=== PATIENT | female | born 1955 | race Caucasian/White ===

== ENCOUNTER 2016-12-16 11:28 | Emergency (ER) | payer OTHER ==
[2016-12-16 11:34] VITALS: TEMP 98.1; BMI 29.7
--- NOTE | 2016-12-16 14:38 | PDOC ---
History of Present Illness - General History Source: Patient Exam Limitations: No Limitations - History of Present Illness Initial Comments: 12/16/16 14:38 The patient is a 61 year old female with significant past medical history of niddm on metformin, diverticulosis, gastritis, asthma, kidney stones who presents to the ED for 2 days of right mid-back pain radiating to the right abdomen. Patient describes pain as a sharp and twisting sensation with associated nausea and vomiting. Denies diarrhea. Patient reports eating [place] food on Friday, which is typically unusual for her, and developed pain the following morning. States she has a 4 year chronic history of abdominal pain and the first time she was evaluated for similar symptoms she was found to have kidney stones. Since then she has had occasional similar symptoms and has been evaluated with extensive work-up, but no physical source. Patient reports trying to avoid eating secondary to abdominal pain and vomiting. She also reports slight improvement with stimulator patch. The patient denies fever, chills, cough, SOB, chest pain, and palpitations. The patient denies dysuria, hematuria, urgency, and frequency. Allergies: levofloxacin, azithromycin, and multiple food allergy Social History: No alcohol, tobacco, or drug use reported. Past Surgical History: , cataracts sx x 2, meniscus repair x 2, colonoscopy, upper endoscopy (pud) PCP: Dr. Heladio Estrada Agronomy Instructor: Dr. Nato Douglas GI: Dr. Thomas Ferreira <Ivelisse Nice - Last Filed: 12/16/16 14:38> <Darrius Kaur - Last Filed: 12/16/16 18:44> - General Chief Complaint: Pain, Acute Stated Complaint: ABD/LOWER FLANK PAIN Time Seen by Provider: 12/16/16 13:42 Past History <Ivelisse Nice - Last Filed: 12/16/16 14:38> - Past Medical History Asthma: Yes Cardiac Disorders: Yes Diabetes: Yes (NIDDM) GI Disorders: Yes (diverticulosis) Disorders: Yes (kidney stones) Kidney Stones: Yes - Surgical History Orthopedic Surgery: Yes (right knee surgery) - Psycho/Social/Smoking Cessation Hx Anxiety: No Suicidal Ideation: No Smoking Status: Yes Smoking History: Former smoker Have you smoked in the past 12 months: No Number of Cigarettes Smoked Daily: 0 If you are a former smoker, when did you quit?: 15 Information on smoking cessation initiated: No Hx Alcohol Use: No Drug/Substance Use Hx: No Substance Use Type: None Hx Substance Use Treatment: No <Darrius Kaur - Last Filed: 12/16/16 18:44> - Past Medical History Allergies/Adverse Reactions: Allergies Allergy/AdvReac Type Severity Reaction Status Date / Time levofloxacin Allergy Verified 12/16/16 11:35 azithromycin AdvReac Verified 12/16/16 11:35 nuts/beans Allergy Severe anaphylactic Uncoded 12/16/16 11:35 shock aged food products Allergy Uncoded 12/16/16 11:35 fruits/vegetables Allergy Uncoded 12/16/16 11:35 multiple food allergies Allergy Uncoded 12/16/16 11:35 trees/mold/dust Allergy Uncoded 12/16/16 11:35 Home Medications: Ambulatory Orders Metformin HCl [Glucophage -] 500 mg PO BID 01/12/13 Omeprazole [Prilosec] 20 mg PO DAILY 12/11/15 Sulfamethoxazole/Trimethoprim [Bactrim Ds -] 1 tab PO BID #20 tablet 12/16/16 Tramadol HCl [Ultram] 50 mg PO TID PRN #10 tablet MDD 3 12/16/16 Review of Systems - Review of Systems Constitutional: No: Chills, Fever Respiratory: No: Cough, Shortness of Breath Cardiac (ROS): No: Chest Pain ABD/GI: No: Constipated, Diarrhea, Nausea, Vomiting : Yes: Flank Pain. No: Dysuria, Frequency, Hematuria Musculoskeletal: Yes: Muscle Pain All Other Systems: Reviewed and Negative <Darrius Kaur - Last Filed: 12/16/16 18:44> *Physical Exam - Vital Signs Last Vital Signs Temp Pulse Resp BP Pulse Ox 98.1 F 69 18 150/77 96 12/16/16 11:29 12/16/16 11:29 12/16/16 11:29 12/16/16 11:29 12/16/16 11:29 - Physical Exam Comments: 12/16/16 14:39 GENERAL: The patient is awake, alert, and fully oriented, in no acute distress. HEAD: Normal with no signs of trauma. EYES: Pupils equal, round and reactive to light, extraocular movements intact, sclera anicteric, conjunctiva clear with no pallor. ENT: Ears normal, nares patent, oropharynx clear without exudates. Moist mucous membranes. NECK: Normal range of motion, supple without lymphadenopathy, JVD, or masses. LUNGS: Breath sounds equal, clear to auscultation bilaterally. No wheeze/ crackles. HEART: Regular rate and rhythm, normal S1 and S2 without murmur or rub. ABDOMEN: Soft/nondistended. No right upper quadrant tenderness. Right pelvic discomfort. BS wnl. No guarding or rebound. No palpable masses. No hepatosplenomegaly. EXTREMITIES: Normal range of motion, no edema. No clubbing or cyanosis. No cords, erythema, or tenderness. MUSCKLOSKELETAL: No CVA tenderness. No reproducible back tenderness. NEUROLOGICAL: Cranial nerves II through XII grossly intact. Normal speech, normal gait. PSYCH: Normal mood, normal affect. SKIN: Warm, Dry, normal turgor, no rashes or lesions noted. <Ivelisse Nice - Last Filed: 12/16/16 14:38> - Vital Signs Last Vital Signs Temp Pulse Resp BP Pulse Ox 98.1 F 69 18 150/77 96 12/16/16 11:29 12/16/16 11:29 12/16/16 11:29 12/16/16 11:29 12/16/16 11:29 <Darrius Kaur - Last Filed: 12/16/16 18:44> ED Treatment Course - LABORATORY CBC & Chemistry Diagram: 12/16/16 16:00 12/16/16 16:00 - RADIOLOGY Radiology Studies Ordered: Category Date Time Status ABDOMEN US -LIMITED [US] Stat Ultrasound 12/16/16 14:00 Ordered KIDNEY / RENAL US [US] Stat Ultrasound 12/16/16 14:00 Ordered <Darrius Kaur - Last Filed: 12/16/16 18:44> Medical Decision Making - Medical Decision Making 12/16/16 14:30 A portion of this note was documented by scribe services under my direction. I have reviewed the details of the note, within reason, and agree with the documentation with the following case summary and management plan written by me. 61-year-old female with history of recurring back/abdominal pain for several years without clear etiology despite imaging, now presents with an exacerbation of her same right back/right abdominal pain that began 2 days ago. No injury, has applied the only things that relieves her pain which is a topical stimulator. Decreased appetite, ? worse with PO intake, n/v at high severity pain, no d/c. no urinary complaints, no cardiopulmonary complaints. Normal. Comfortable now. Mild right pelvic/lower lateral abdominal discomfort to palpation without guarding or rebound, no CVA tenderness, no musculoskeletal or skin findings Lungs are clear 61-year-old female with acute on chronic right back/abdominal pain. No clear findings on exam, once had a kidney stone but workups have otherwise been negative for renal/biliary etiology. ? herniated disc, no evidence of zoster. labs, ua renal and GB sono declines pain control now reassess 12/16/16 16:46 GB/renal sono wnl. no leukocytosis, normal diff. Chem hemolyzed so repeated. UA with elevated WBC, will treat for presumed UTI/pyelo. 12/16/16 18:37 Chem again hemolyzed, Pt does not want to wait anymore and will f/u with her PMD. Agrees with plan and understands return criteria. <Darrius Kaur - Last Filed: 12/16/16 18:44> *DC/Admit/Observation/Transfer - Attestations Scribe Attestion: 12/16/16 14:39 Documentation prepared by Ivelisse Nice, acting as medical program specialist for Darrius Kaur MD, MD/DO. <Ivelisse Nice - Last Filed: 12/16/16 14:38> <Darrius Kaur - Last Filed: 12/16/16 18:44> Diagnosis at time of Disposition: Chronic abdominal pain, Pyelonephritis Right-sided back pain Qualifiers: Back pain location: thoracic back pain Chronicity: chronic Qualified Code(s): M54.6 - Pain in thoracic spine - Discharge Dispostion Disposition: HOME Condition at time of disposition: Improved - Prescriptions Prescriptions: Sulfamethoxazole/Trimethoprim [Bactrim Ds -] 1 tab PO BID #20 tablet Tramadol HCl [Ultram] 50 mg PO TID PRN #10 tablet MDD 3 PRN Reason: Pain - Referrals Referrals: Heladio Estrada MD [Primary Care Provider] - - Patient Instructions Printed Discharge Instructions: DI for Kidney Infection Additional Instructions: Activity as tolerated. Stay hydrated. Tylenol 1000 mg every 8 hours and/or ibuprofen 600 mg every 8 hours as needed for moderate pain, Tramadol as prescribed as needed for severe pain. Tramadol can make you lightheaded so take proper precautions. Your symptoms are due to a kidney infection. Take Bactrim as prescribed for 10 days. As we discussed, your "chemistry panel" tests were not completed, so follow up with your primary doctor. Continue your medications as previously prescribed by your physician. You should follow up with Dr. Estrada as soon as possible regarding today's emergency department visit. Return to the emergency department for any new or concerning symptoms, particularly persistent or worsening pain, fever/chills, difficulty urinating, shortness of breath.
[2016-12-16 16:13] LABS: URINE APPEARANCE TURBID; URINE BILIRUBIN NEGATIVE (NEGATIVE); URINE BLOOD NEGATIVE (NEGATIVE); URINE COLOR YELLOW; URINE GLUCOSE (UA) NEGATIVE (NEGATIVE); URINE KETONE TRACE (NEGATIVE); URINE NITRITE NEGATIVE (NEGATIVE); URINE PROTEIN NEGATIVE (NEGATIVE); URINE UROBILINOGEN NEGATIVE E.U./dl (0.2-1.0)
[2016-12-16 16:18] LABS: BASOPHIL 0.4 % (0-2.0); EOSINOPHIL 0.3 % (0-4.5); MCH 28.5 pg (25.7-33.7); MCHC 33.4 g/dl (32.0-36.0); MEAN CELL VOLUME 85.1 fl (80-96); MEAN PLT VOLUME 9.2 fl (7.5-11.1); NEUTROPHILS 69.3 % (42.8-82.8); PLATELET COUNT 187 K/MM3 (134-434); RDW 13.3 % (11.6-15.6); WHITE BLOOD COUNT 6.9 K/mm3 (4.0-10.0)
[2016-12-16 16:19] LABS: URINE LEUK ESTERASE 3+ (NEGATIVE)
[2016-12-16 16:22] LABS: URINE BACTERIA RARE /hpf (NONE SEEN); URINE MUCUS MODERATE; URINE RBC 3 /hpf (0-3); URINE WBC 87 /hpf (3-5); YEAST FEW
[2016-12-16] MEDS ORDERED: CEFTRIAXONE 1 GM in DEXTROSE 5%-WATER - 50 ML IVPB ONE (16:40)
[2016-12-16] MEDS ORDERED: SULFAMETHOXAZOLE/TRIMETHOPRIM 800MG/160MG D.S. TABLET PO ONE (16:40)
[2016-12-16] MEDS ORDERED: SULFAMETHOXAZOLE/TRIMETHOPRIM 800MG/160MG D.S. TABLET ONE (16:57)
[2016-12-16] MEDS ORDERED: KETOROLAC TROMETHAMINE 30 MG/1 ML VIAL IVPUSH ONE (17:13)
[2016-12-16] MEDS ORDERED: traMADol HCL 50 MG TABLET PO ONE (17:22)
[2016-12-16] MEDS ORDERED: traMADol HCL 50 MG TABLET ONE (18:09)
[2016-12-16 19:05] VITALS: BP 150/76; PULSE 63
== END 2016-12-16 19:05 | disposition home or self-care (01) ==
LOC: JER 11:28
DX: N12 Tubulo-interstitial nephritis, not specified as acute or chronic (principal); E11.9 Type 2 diabetes mellitus without complications; Z79.84 Long term (current) use of oral hypoglycemic drugs; J45.909 Unspecified asthma, uncomplicated; Z87.442 Personal history of urinary calculi
CPT/HCPCS: 36415; 76705-TC; 76775-TC; 81003; 81015; 85025; 87086; 99282-25

== ENCOUNTER 2017-01-17 07:23 | Emergency (ER) | payer OTHER ==
[2017-01-17 07:45] VITALS: TEMP 98.2; BMI 34.2
--- NOTE | 2017-01-17 08:03 | PDOC ---
History of Present Illness <Thuy Calzada - Last Filed: 01/17/17 11:43> - General History Source: Patient, Spouse Exam Limitations: No Limitations - History of Present Illness Initial Comments: 61 yo female with h/o renal calculus (stone passed >2 years ago), diverticulosis , gastritis, NIDDM on metformin, and 34 years ago who presents c/o right lower back and RUQ pain. She has had recurrent episodes of this pain for the past four years and was last seen two months ago here in the [facility] ED, diagnosed with UTI/pyelonephritis based on WBC in the urine, and given antibiotic, but the urine cultures did not grow out any organisms ultimately). This onset started suddenly yesterday morning and is like a knife twisting in her right low back. It is 4/10 at rest and 10/10 when she stands. The pain radiates straight forward to her right upper abdomen. Yesterday she took Motrin and a narcotic pain reliever from her prior Rx, and she placed a lidocaine patch on her low back. This morning she has taken nothing but replaced the lidocaine patch with a TENS unit on the lower back. She notes nausea and two episodes of dry heaving this morning, as well as recent mild cough. She denies any diarrhea, constipation, black/bloody stool, vaginal bleeding, vaginal discharge, painful urination, other urinary symptoms, chest pain, or shortness of breath. She still has her gallbladder, appendix, ovaries, and uterus. She has had this same pain many times before and has been seen here in the ED, by her PCP, and by Gastroenterology. She has had abdominal US, abdominal/pelvic CT with and without contrast, MRI, upper endoscopy, and colonoscopy with nondirective workup for the recurrent episodes. <Dover,Mary - Last Filed: 01/17/17 12:23> - General Stated Complaint: LWR BACK PAIN Time Seen by Provider: 01/17/17 07:39 Past History <Thuy Calzada - Last Filed: 01/17/17 11:43> - Past Medical History Asthma: Yes Cardiac Disorders: Yes Diabetes: Yes (NIDDM) GI Disorders: Yes (diverticulosis) Disorders: Yes (kidney stones) Kidney Stones: Yes - Surgical History Abdominal Surgery: Yes ( 34 years ago) Appendectomy: No Cholecystectomy: No Orthopedic Surgery: Yes (right knee surgery) - Psycho/Social/Smoking Cessation Hx Anxiety: No Suicidal Ideation: No Smoking Status: Yes Smoking History: Former smoker Have you smoked in the past 12 months: No Number of Cigarettes Smoked Daily: 0 If you are a former smoker, when did you quit?: 15 Hx Alcohol Use: No Drug/Substance Use Hx: No Substance Use Type: None Hx Substance Use Treatment: No <Citlaly Dover - Last Filed: 01/17/17 12:23> - Past Medical History Allergies/Adverse Reactions: Allergies Allergy/AdvReac Type Severity Reaction Status Date / Time levofloxacin Allergy Verified 01/17/17 07:42 azithromycin AdvReac Verified 01/17/17 07:42 nuts/beans Allergy Severe anaphylactic Uncoded 01/17/17 07:42 shock aged food products Allergy Uncoded 01/17/17 07:42 fruits/vegetables Allergy Uncoded 01/17/17 07:42 multiple food allergies Allergy Uncoded 01/17/17 07:42 trees/mold/dust Allergy Uncoded 01/17/17 07:42 Home Medications: Ambulatory Orders Metformin HCl [Glucophage -] 500 mg PO DAILY 01/12/13 Cephalexin [Keflex] 500 mg PO TID #30 capsule 01/17/17 Diazepam [Valium] 5 mg PO Q8H PRN #10 tablet MDD 3 01/17/17 Ibuprofen 600 mg PO TID PRN #30 tablet MDD 3 01/17/17 Methylprednisolone [Medrol Dose Sundeep] 4 mg PO ASDIR #21 tablet 01/17/17 Review of Systems - Review of Systems Constitutional: No: Chills, Fever, Unexplained wgt Loss HEENTM: No: Nose Congestion, Throat Pain Respiratory: Yes: Cough (mild). No: Shortness of Breath Cardiac (ROS): No: Chest Pain, Palpitations ABD/GI: Yes: Nausea, Vomiting (dry heaves). No: Constipated, Diarrhea : No: Burning, Dysuria Musculoskeletal: Yes: Back Pain (right lower). No: Neck Pain Integumentary: No: Bruising, Rash Neurological: No: Headache, Numbness, Tingling, Weakness, Dizziness Endocrine: No: Unexplained Weight Gain, Unexplained Weight Loss <Citlaly Dover - Last Filed: 01/17/17 12:23> *Physical Exam - Vital Signs Last Vital Signs Temp Pulse Resp BP Pulse Ox 98.2 F 66 20 176/86 97 01/17/17 07:42 01/17/17 07:42 01/17/17 07:42 01/17/17 07:42 01/17/17 07:42 <Thuy Calzada - Last Filed: 01/17/17 11:43> - Physical Exam General Appearance: Yes: Nourished, Mild Distress, Obese, Other (appears frustrated but is conversive and appropriate) HEENT: positive: EOMI, Normal Voice, Hearing Grossly Normal. negative: Scleral Icterus (R), Scleral Icterus (L), Nasal Congestion Neck: positive: Trachea midline, Supple. negative: Tender, Rigid Respiratory/Chest: positive: Lungs Clear, Normal Breath Sounds. negative: Respiratory Distress, Crackles, Rhonchi, Stridor, Wheezing Cardiovascular: positive: Regular Rhythm, Regular Rate. negative: Murmur Gastrointestinal/Abdominal: positive: Normal Bowel Sounds, Tender (mild RUQ tenderness to palpation with negative Mar's sign), Soft, Other (no tenderness on heel tap, no rebound tenderness). negative: Organomegaly, Pulsatile Mass, Guarding Musculoskeletal: positive: Normal Inspection, Other (no midline tenderness to palpation, TENS unit noted on lower back just superior and lateral to SI joint bilaterally, no significant paraspinous tenderness to palpation, no tenderness to sciatic nerve or piriformis distribution bilaterally). negative: Decreased Range of Motion Extremity: positive: Normal Capillary Refill, Normal Inspection, Normal Range of Motion. negative: Tender, Coldness, Cyanosis, Calf Tenderness Integumentary: positive: Normal Color, Dry, Warm, Other (right upper extremity with 5x5 and 3x3 cm patches of raised erythema with excoriations consistent with rhus dermatitis). negative: Erythema, Rash, Bruising Neurologic: positive: service consultant II-XII NML intact, Fully Oriented, Alert, Normal Mood/ Affect, Normal Response, Motor Strength 5/5 (including 5/5 strength BLE to foot and toe dorsiflexion and plantarflexion, knee flexion and extension, and hip flexion, extension, abduction, adduction, internal rotation, and external rotation, sensation to light touch intact throughout BLE, proprioception great toe intact bilaterally ), Other (normal gait) Deep Tendon Reflexes: Ankle (L): 2+, Ankle (R): 2+, Knee (L): 2+, Knee (R): 2+ <Citlaly Dover - Last Filed: 01/17/17 12:23> Procedures - Bedside Ultrasound Bedside Ultrasound: Gallbladder Other: GB and REnal ultrasound : see [facility] for findings. <Thuy Calzada - Last Filed: 01/17/17 11:43> - Bedside Ultrasound Bedside Ultrasound: Gallbladder Other: renal, bladder Remarks: 01/17/17 11:10 No hydronephrosis, no gallstones or wall thickening or pericholecystic fluid or distention, bladder is not visualized as Pt just emptied bladder. <Citlaly Dover - Last Filed: 01/17/17 12:23> ED Treatment Course - LABORATORY CBC & Chemistry Diagram: 01/17/17 08:25 01/17/17 08:25 - ADDITIONAL ORDERS Additional order review: Laboratory Results 01/17/17 01/17/17 01/17/17 08:44 08:25 08:25 Sodium 139 Potassium 4.6 Chloride 102 Carbon Dioxide 31 Anion Gap 6 L BUN 17 D Creatinine 0.6 Creat Clearance w eGFR > 60 Random Glucose 164 H Calcium 9.6 Total Bilirubin 0.3 D AST 46 H D ALT 80 H D Alkaline Phosphatase 87 D Total Protein 7.8 Albumin 3.8 Lipase 144 Urine Color Ltyellow Urine Appearance Clear Urine pH 5.0 Urine Protein Negative Urine Glucose (UA) Negative Urine Ketones Negative Urine Blood Negative Urine Nitrite Negative Urine Bilirubin Negative Urine Urobilinogen Negative Ur Leukocyte Esterase Trace Urine RBC 1 Urine WBC 7 Ur Epithelial Cells Rare Urine Mucus Rare 01/17/17 08:25 RBC 4.70 MCV 84.8 MCHC 33.3 RDW 13.2 MPV 9.2 Neutrophils % 81.1 Lymphocytes % 11.3 D Monocytes % 6.4 Eosinophils % 0.8 D Basophils % 0.4 - Medications Given in the ED: ED Medications Discontinued Medications Generic Name Dose Route Start Last Admin Trade Name Андрейq PRN Reason Stop Dose Admin Cephalexin HCl 500 mg 01/17/17 11:06 01/17/17 11:29 Keflex - PO 01/17/17 11:07 500 mg ONCE ONE Administration Diazepam 5 mg 01/17/17 11:06 01/17/17 11:29 Valium - PO 01/17/17 11:07 5 mg ONCE ONE Administration Ketorolac Tromethamine 30 mg 01/17/17 08:31 01/17/17 09:04 Toradol Injection - IVPUSH 01/17/17 08:32 30 mg ONCE ONE Administration <Thuy Calzada - Last Filed: 01/17/17 11:43> - LABORATORY CBC & Chemistry Diagram: 01/17/17 08:25 01/17/17 08:25 <Citlaly Dover - Last Filed: 01/17/17 12:23> Medical Decision Making - Medical Decision Making 01/17/17 11:47 focused ED ultrasound renal, indication : flank pain r/o hydro finding: no hydronephrosis bilaterally. bladder empty. impression: normal renal ultrasound focused ED ultrasound gallbladder: indication: right side abd/ flank pain finding: gallbladder scanned in two planes. no stones. no wall thickening, no wall edema. neg sonographic mar's, wall measured <4mm, CBD 2 mm, impression: normal gallbladder. major <Thuy Calzada - Last Filed: 01/17/17 11:43> - Medical Decision Making 61 yo female with h/o kidney stone, pyelonephritis, diverticulosis, 4 year struggle with right low back pain. Here with recurrence of right low back pain radiating to RUQ same as prior episodes. Exam notable only for RUQ mild tenderness to palpation without Mar's sign. Back exam within normal limits, neurovascularly intact, BLE reflexes 2+ and symmetric. Cannot-miss DDX includes cauda equina syndrome, spinal cord compression (e.g. by a mass), vertebral fracture, meningitis, spinal epidural abscess, AAA. DDX also includes herniated lumbar disc compressing nerve root, sciatica, piriformis syndrome, cholecystitis, appendicitis, diverticulitis, renal calculis , UTI/pyelonephritis. Ordered are CBC, CMP, lipase, UA, urine culture. Will perform bedside US as well. Symptom control orders Zofran and Toradol. 01/17/17 10:39 Pt states the pain medication "took the edge off" but she still feels it. Laboratories have resulted with the only abnormalities being only AST=46 and ALT =80. Bedside US done w/o e/o hydronephrosis or gallstones or cholecystitis, bladder is empty. 01/17/17 11:10 Pt's UA does show some WBC and she notes being mildly symptomatic. Will treat for presumed UTI with Keflex Also will treat for back pain/spasm with Valium 5 mg here in the ED and short prescription. 01/17/17 11:12 Pt given valium with significant relief. She is comfortable with DC home with Rx as noted above, and close OP followup. Medrol dose pack prescribed for acute back pain, coincidental poison chente/oak dermatitis. <Citlaly Dover - Last Filed: 01/17/17 12:23> *DC/Admit/Observation/Transfer <Thuy Calzada - Last Filed: 01/17/17 11:43> - Discharge Dispostion Admit: No - Attestations Physician Attestion: 01/17/17 11:17 I, Dr. Citlaly Dover, attest that this document has been prepared under my direction and personally reviewed by me in its entirety. I further attest, that it accurately reflects all work, treatment, procedures and medical decision -making performed by me. <Citlaly Dover - Last Filed: 01/17/17 12:23> Diagnosis at time of Disposition: Rhus dermatitis UTI (urinary tract infection) Qualifiers: Urinary tract infection type: acute pyelonephritis Qualified Code(s): N10 - Acute pyelonephritis Back pain Qualifiers: Back pain location: low back pain Chronicity: unspecified Back pain laterality : right Sciatica presence: without sciatica Qualified Code(s): M54.5 - Low back pain - Discharge Dispostion Disposition: HOME Condition at time of disposition: Stable - Prescriptions Prescriptions: Ibuprofen 600 mg PO TID PRN #30 tablet MDD 3 PRN Reason: Pain Cephalexin [Keflex] 500 mg PO TID #30 capsule Methylprednisolone [Medrol Dose Sundeep] 4 mg PO ASDIR #21 tablet Diazepam [Valium] 5 mg PO Q8H PRN #10 tablet MDD 3 PRN Reason: Pain - Referrals Referrals: Heladio Estrada MD [Primary Care Provider] - - Patient Instructions Printed Discharge Instructions: DI for Low Back Pain, DI for Back Spasm Additional Instructions: You were seen in the ER today for right lower back pain and right abdominal pain. We did some blood work and a urine test which did not show anything obviously abnormal except for a few white blood cells in the urine. Because you are mildly symptomatic with slight burning on urination, we are treating you for a UTI with Keflex (please miner pick prescription from your pharmacy). We are also diagnosing you with right lower back pain/muscle spasm and treating you with valium which you can take as needed per the instructions on the bottle. Please pick this up from your pharmacy too. Please follow up with your regular doctor or return to the ED with any further emergency concerns.
[2017-01-17] MEDS ORDERED: KETOROLAC TROMETHAMINE 30 MG/1 ML VIAL IVPUSH ONE (08:31)
[2017-01-17 09:03] LABS: URINE APPEARANCE CLEAR; URINE BILIRUBIN NEGATIVE (NEGATIVE); URINE BLOOD NEGATIVE (NEGATIVE); URINE COLOR LTYELLOW; URINE GLUCOSE (UA) NEGATIVE (NEGATIVE); URINE KETONE NEGATIVE (NEGATIVE); URINE LEUK ESTERASE TRACE (NEGATIVE); URINE NITRITE NEGATIVE (NEGATIVE); URINE PROTEIN NEGATIVE (NEGATIVE); URINE UROBILINOGEN NEGATIVE mg/dL (0.2-1.0)
[2017-01-17] MEDS ORDERED: KETOROLAC TROMETHAMINE 30 MG/1 ML VIAL ONE (09:05)
[2017-01-17 09:06] LABS: BASOPHIL 0.4 % (0-2.0); EOSINOPHIL 0.8 % (0-4.5); MCH 28.2 pg (25.7-33.7); MCHC 33.3 g/dl (32.0-36.0); MEAN CELL VOLUME 84.8 fl (80-96); MEAN PLT VOLUME 9.2 fl (7.5-11.1); NEUTROPHILS 81.1 % (42.8-82.8); PLATELET COUNT 156 K/MM3 (134-434); RDW 13.2 % (11.6-15.6)
[2017-01-17 09:09] LABS: URINE MUCUS RARE; URINE RBC 1 /hpf (0-3); URINE WBC 7 /hpf (3-5)
[2017-01-17 09:33] LABS: ALBUMIN 3.8 g/dl (3.4-5.0); ALK PHOS 87 U/L (45-117); ANION GAP 6 (8-16); BILIRUBIN,TOTAL 0.3 mg/dL (0.2-1.0); CALCIUM 9.6 mg/dL (8.5-10.1); CO2 31 mmol/L (21-32); CREATININE 0.6 mg/dL (0.55-1.02); GLUCOSE,RANDOM 164 mg/dL (74-106); SGOT/AST 46 U/L (15-37); SGPT/ALT 80 U/L (12-78); TOT PROT 7.8 g/dl (6.4-8.2)
[2017-01-17] MEDS ORDERED: CEPHALEXIN MONOHYDRATE 500 MG CAPSULE (UD) PO ONE (11:06)
[2017-01-17] MEDS ORDERED: diazePAM 5 MG TABLET PO ONE (11:06)
[2017-01-17] MEDS ORDERED: CEPHALEXIN MONOHYDRATE 250 MG CAPSULE (FP) ONE (11:26)
[2017-01-17] MEDS ORDERED: diazePAM 5 MG TABLET ONE (11:27)
--- NOTE | 2017-01-17 11:33 | PDOC ---
Attending Attestation - Resident Resident Name: DoverCitlaly - ED Attending Attestation I have performed the following: I have examined & evaluated the patient, The case was reviewed & discussed with the resident, I agree w/resident's findings & plan, Exceptions are as noted - HPI HPI: 01/17/17 11:23 61 yo F with h/o DM here wtih c/o right side flank and low back pain awoke with pain this am. no mod factors. no heavy lifting, no trauma, numbness or no weakness, no bowel or bladder dysfunction. does have urinary frequency. does report recent dysuria. no f/c no n/v. no rash. has had prior us renal and GB which was normal in november 2015. also has had an MRI in the past which was also normal. - Physicial Exam PE: 01/17/17 11:33 awake alert lungs clear heart RRR no mrg abd soft NT ND . bilat lower flank ttp , no midline central vertebral tenderness. bilat lower ext strength 5/5 , sensation intact throughout. 01/17/17 11:33 - Medical Decision Making 01/17/17 11:41 61 yo F with bilat lower back pain, no abd tenderness on exam, normal nuerological exam. plan nsaids muscle relaxers, bedside us renal and gb. ua r/o uti, pyleo. reassess.
[2017-01-17] MEDS ORDERED: BACITRACIN 0.9 GM PACKET ONE (11:58)
[2017-01-17] MEDS ORDERED: BACITRACIN 15 GM TUBE TOPICAL OINTMENT ONE (11:59)
[2017-01-17 12:17] VITALS: BP 133/77; PULSE 71
== END 2017-01-17 12:17 | disposition home or self-care (01) ==
LOC: JER 07:23
DX: N10 Acute pyelonephritis (principal); L23.7 Allergic contact dermatitis due to plants, except food
CPT/HCPCS: 36415; 80053; 81003; 81015; 83690; 85025; 87086; 99283-25

== ENCOUNTER → 2022-05-07 | Day surgery (SDC) | payer OTHER | END | disposition home or self-care (01) | LOC: FMAMMOTONE 12:53 | PROVIDERS: ATTEND Specialist | PROC: 0HBT3ZX Excision of Right Breast, Percutaneous Approach, Diagnostic (ICD-10-PCS; principal; 2022-05-07) | DX: N60.11 Diffuse cystic mastopathy of right breast (principal); N60.31 Fibrosclerosis of right breast; N60.81 Other benign mammary dysplasias of right breast; N64.89 Other specified disorders of breast; R92.0 Mammographic microcalcification found on diagnostic imaging of breast | CPT/HCPCS: 19081; 76098-TC-FY; 87899; 88305-TC; 88342-TC; A4648 ==

== ENCOUNTER 2022-11-22 08:01 | Emergency (ER) | payer OTHER ==
[2022-11-22 08:12] VITALS: BMI 32.2
[2022-11-22] MEDS ORDERED: ACETAMINOPHEN 1000 MG/100 ML BAG IVPB ONE (08:25)
[2022-11-22] MEDS ORDERED: ONDANSETRON 4 MG/2 ML VIAL IVPUSH ONE (08:25)
[2022-11-22] MEDS ORDERED: SODIUM CHLORIDE 0.9% 500 ML INFUS.BAG IV ONE (08:26)
[2022-11-22] MEDS ORDERED: ACETAMINOPHEN INJECTION 100 ML IVPB ONE (08:47)
[2022-11-22] MEDS ORDERED: ONDANSETRON 4 MG/2 ML VIAL ONE (08:48)
[2022-11-22 08:54] LABS: BASO % 0.6 % (0-2.0); EOS % 1.2 % (0-4.5); HEMATOCRIT 37.5 % (32.4-45.2); HEMOGLOBIN 12.9 GM/dL (10.7-15.3); LYMPH % 12.2 % (8-40); MCH 28.4 pg (25.7-33.7); MCHC 34.4 g/dl (32.0-36.0); MEAN CELL VOLUME 82.5 fl (80-96); MEAN PLT VOLUME 9.2 fl (7.5-11.1); MONO % 8.2 % (3.8-10.2); NEUT % 77.8 % (42.8-82.8); PLATELET COUNT 144 10^3/uL (134-434); RBC 4.55 M/mm3 (3.60-5.2); RDW 13.5 % (11.6-15.6); WHITE BLOOD COUNT 6.3 K/mm3 (4.0-10.0)
[2022-11-22 09:15] LABS: BLOOD UREA NITROGEN 21.8 mg/dL (7-18); CALCIUM 9.3 mg/dL (8.5-10.1)
[2022-11-22 09:16] LABS: ALBUMIN 3.9 g/dl (3.4-5.0); MAGNESIUM 1.9 mg/dL (1.8-2.4)
[2022-11-22 09:18] LABS: CREATININE 0.8 mg/dL (0.55-1.3)
[2022-11-22 09:21] LABS: BILIRUBIN,TOTAL 0.6 mg/dL (0.2-1); EPI CELLS 12 /uL (0-25.1); HYALINE CASTS 1 /uL (0-3.1); TOT PROT 8.5 g/dl (6.4-8.2); URINE APPEARANCE CLEAR; URINE BILIRUBIN NEGATIVE (NEGATIVE); URINE COLOR ORANGE; URINE GLUCOSE (UA) NEGATIVE (NEGATIVE); URINE KETONE NEGATIVE (NEGATIVE); URINE LEUK ESTERASE 1+ (NEGATIVE); URINE NITRITE POSITIVE (NEGATIVE); URINE PROTEIN 1+ (NEGATIVE); URINE RBC 192 /uL (0-23.9); URINE UROBILINOGEN 0.2 mg/dL (0.2-1.0); URINE WBC 10 /uL (0-25.8)
[2022-11-22] MEDS ORDERED: CEFTRIAXONE 1 GM in DEXTROSE 5%-WATER - 100 ML IVPB ONE (09:23)
[2022-11-22] MEDS ORDERED: CEFTRIAXONE 1 GM/50 ML BAG ONE (09:31)
[2022-11-22 11:22] VITALS: BP 157/84; PULSE 67; RESP 16; TEMP 98.3
[2022-11-22] MEDS ORDERED: KETOROLAC TROMETHAMINE 15 MG/ML VIAL IVPUSH ONE (11:22)
[2022-11-22] MEDS ORDERED: KETOROLAC TROMETHAMINE 15 MG/ML VIAL ONE (11:26)
[2022-11-22 15:07] LABS: URINE BACTERIA 2.9 /uL (0-1359)
== END 2022-11-22 12:25 | disposition home or self-care (01) ==
LOC: JER 08:01
PROC: 3E03329 Introduction of Other Anti-infective into Peripheral Vein, Percutaneous Approach (ICD-10-PCS; principal; 2022-11-22)
PROC: 3E033NZ Introduction of Analgesics, Hypnotics, Sedatives into Peripheral Vein, Percutaneous Approach (ICD-10-PCS; 2022-11-22)
PROC: 3E0333Z Introduction of Anti-inflammatory into Peripheral Vein, Percutaneous Approach (ICD-10-PCS; 2022-11-22)
PROC: 3E033GC Introduction of Other Therapeutic Substance into Peripheral Vein, Percutaneous Approach (ICD-10-PCS; 2022-11-22)
DX: R10.9 Unspecified abdominal pain (principal); R11.2 Nausea with vomiting, unspecified; R31.9 Hematuria, unspecified; N10 Acute pyelonephritis; N20.0 Calculus of kidney; N23 Unspecified renal colic; Z20.822 Contact with and (suspected) exposure to COVID-19
CPT/HCPCS: 36415; 74176-TC; 80053; 81003; 83735; 85025; 87086; 87635; 99284-25